=== PATIENT | female | born 1950 | race African-American/Black ===

== ENCOUNTER 2017-02-13 11:45 | Emergency (ER) | payer MEDICARE, OTHER ==
[2017-02-13 11:59] VITALS: TEMP 98.4; BMI 26.5
[2017-02-13] MEDS ORDERED: HEMOQUE TEST 1 EACH EACH ONE (12:01)
[2017-02-13 12:11] VITALS: BP 151/77; PULSE 88
--- NOTE | 2017-02-13 12:45 | PDOC ---
History of Present Illness - General History Source: Patient (Patient brought in by ambulance because of intermitent headaches progressively worse on the right side of head , coinciding with recent retina damage by her eye specialists who were recomending injections in the left eye globe and eye drops or the right one), EMS <Gerald Lynn - Last Filed: 02/13/17 13:58> <Maria Guadalupe Rodriguez - Last Filed: 02/14/17 18:40> - General Chief Complaint: Headache Stated Complaint: PAIN IN HEAD Time Seen by Provider: 02/13/17 11:48 Past History - Past Medical History COPD: No Diabetes: Yes HTN: Yes Hypercholesterolemia: Yes Thyroid Disease: Yes - Suicide/Smoking/Psychosocial Hx Smoking Status: No Smoking History: Never smoked Number of Cigarettes Smoked Daily: 0 Hx Alcohol Use: No Drug/Substance Use Hx: No Substance Use Type: None <Gerald Lynn - Last Filed: 02/13/17 13:58> <Maria Guadalupe Rodriguez - Last Filed: 02/14/17 18:40> - Past Medical History Allergies/Adverse Reactions: Allergies Allergy/AdvReac Type Severity Reaction Status Date / Time ANTIHISTAMINES Allergy Uncoded 02/13/17 12:00 Home Medications: Ambulatory Orders Aspirin [ASA] 81 mg PO DAILY 01/21/12 Glipizide [Glipizide ER] 10 mg PO DAILY 01/21/12 Levothyroxine [Synthroid] 75 mcg PO DAILY 01/21/12 Lisinopril [Prinivil] 40 mg PO DAILY 01/21/12 Lovastatin 40 mg PO DAILY 01/21/12 Metformin HCl [Glucophage] 800 mg PO BID 01/21/12 Naproxen [Naprosyn -] 375 mg PO Q12H #14 tablet 02/13/17 Naproxen [Naprosyn -] 375 mg PO Q12H #14 tablet 02/13/17 Neuro Specific PMHX - Complaint Specific PMHX Glaucoma: No <Gerald Lynn - Last Filed: 02/13/17 13:58> *Physical Exam - Vital Signs Last Vital Signs Temp Pulse Resp BP Pulse Ox 98.4 F 88 18 151/77 100 02/13/17 11:46 02/13/17 12:09 02/13/17 12:09 02/13/17 12:09 02/13/17 12:09 <Gerald Lynn S - Last Filed: 02/13/17 13:58> - Vital Signs Last Vital Signs Temp Pulse Resp BP Pulse Ox 98.4 F 88 18 151/77 100 02/13/17 11:46 02/13/17 12:09 02/13/17 12:09 02/13/17 12:09 02/13/17 12:09 - Physical Exam Comments: 02/14/17 18:34 GENERAL: Well developed, well nourished. Awake and alert. In no acute distress. HEENT: Normocephalic, atraumatic with no signs of injury. + Mild tenderness to palpation of the right parietal area. PERRLA, EOMI. No conjunctival pallor. Sclera are non-icteric. Moist mucous membranes. Oropharynx is clear. NECK: Supple. Full ROM. No JVD. Carotid pulses 2+ and symmetric, without bruits. No thyromegaly. No lymphadenopathy. CARDIOVASCULAR: Regular rate and rhythm. No murmurs, rubs, or gallops. Distal pulses are 2+ and symmetric. PULMONARY: No evidence of respiratory distress. Lungs clear to auscultation bilaterally. No wheezing, rales or rhonchi. MUSCULOSKELETAL Normal range of motion at all joints. No bony deformities or tenderness. No CVA tenderness. EXTREMITIES: No cyanosis. No clubbing. No edema. No calf tenderness. SKIN: Warm and dry. Normal capillary refill. No rashes. No jaundice. NEUROLOGICAL: Alert, awake, appropriate. Cranial nerves 2-12 intact. No deficits to light touch and temperature in face, upper extremities and lower extremities. No motor deficits in the in face, upper extremities and lower extremities. Normoreflexic in the upper and lower extremities. Normal speech. Toes are downgoing bilaterally. Gait is normal without ataxia. PSYCHIATRIC: Cooperative. Good eye contact. Appropriate mood and affect. <Maria Guadalupe Rodriguez - Last Filed: 02/14/17 18:40> ED Treatment Course - LABORATORY CBC & Chemistry Diagram: 02/13/17 12:42 02/13/17 12:42 - ADDITIONAL ORDERS Additional order review: Laboratory Results 02/13/17 12:02 POC Glucometer [id number] 02/13/17 12:02 POC Glucometer [id number] <Gerald Lynn - Last Filed: 02/13/17 13:58> - LABORATORY CBC & Chemistry Diagram: 02/13/17 12:42 02/13/17 12:42 - ADDITIONAL ORDERS Additional order review: 02/13/17 02/13/17 12:42 12:02 RBC 4.67 MCV 85.3 MCHC 32.7 RDW 13.2 MPV 12.0 H D Neutrophils % 67.9 D Lymphocytes % 22.2 D Monocytes % 6.4 Eosinophils % 1.4 Basophils % 2.1 H POC Glucometer [id number] - Medications Given in the ED: ED Medications Discontinued Medications Generic Name Dose Route Start Last Admin Trade Name Freq PRN Reason Stop Dose Admin Ketorolac Tromethamine 30 mg 02/13/17 13:18 02/13/17 13:21 Toradol Injection - IM 02/13/17 13:19 30 mg ONCE ONE Administration <Maria Guadalupe Rodriguez - Last Filed: 02/14/17 18:40> Medical Decision Making - Medical Decision Making 02/13/17 13:59 Patient feels much improved after receiving Ketorolac im. Discussed with patient about close follow up with her Ophtalmologists <Gerald Lynn - Last Filed: 02/13/17 13:58> *DC/Admit/Observation/Transfer - Discharge Dispostion Admit: No <Gerald Lynn - Last Filed: 02/13/17 13:58> <Maria Guadalupe Rodriguez - Last Filed: 02/14/17 18:40> Diagnosis at time of Disposition: Trigeminal neuralgia of right side of face Diabetes mellitus Qualifiers: Diabetes mellitus type: type 2 Diabetes mellitus complication status: with ophthalmic complications Diabetes mellitus complication detail: with diabetic retinopathy Proliferative retinopathy type: stable Diabetes mellitus termite renewal inspector insulin use: without termite renewal inspector use Laterality: left - Discharge Dispostion Disposition: HOME Condition at time of disposition: Improved - Prescriptions Prescriptions: Naproxen [Naprosyn -] 375 mg PO Q12H #14 tablet Naproxen [Naprosyn -] 375 mg PO Q12H #14 tablet - Patient Instructions Printed Discharge Instructions: DI for Trigeminal Neuralgia Additional Instructions: Follow up with your eye doctors
[2017-02-13 12:53] LABS: BASOPHIL 2.1 % (0-2.0); EOSINOPHIL 1.4 % (0-4.5); MCH 27.9 pg (25.7-33.7); MCHC 32.7 g/dl (32.0-36.0); MEAN CELL VOLUME 85.3 fl (80-96); NEUTROPHILS 67.9 % (42.8-82.8); PLATELET COUNT 156 K/MM3 (134-434); RDW 13.2 % (11.6-15.6); WHITE BLOOD COUNT 4.7 K/mm3 (4.0-10.8)
[2017-02-13] MEDS ORDERED: KETOROLAC TROMETHAMINE 30 MG/1 ML VIAL IM ONE (13:18)
[2017-02-13] MEDS ORDERED: KETOROLAC TROMETHAMINE 30 MG/1 ML VIAL ONE (13:18)
[2017-02-13 15:49] LABS: ANION GAP 12 (8-16); BILIRUBIN,TOTAL 0.6 mg/dL (0.2-1.0); CALCIUM 9.8 mg/dL (8.5-10.1); CO2 24 mmol/L (21-32); GLUCOSE,RANDOM 177 mg/dL (74-106); SGOT/AST 25 U/L (15-37); SGPT/ALT 23 U/L (12-78)
[2017-02-13 15:50] LABS: ALK PHOS 79 U/L (45-117)
--- NOTE | 2017-02-18 15:10 | EKG ---
Test Reason : Blood Pressure : / mmHG Vent. Rate : 097 BPM Atrial Rate : 097 BPM P-R Int : 172 ms QRS Dur : 098 ms QT Int : 342 ms P-R-T Axes : 047 -28 023 degrees QTc Int : 434 ms NORMAL SINUS RHYTHM NORMAL ECG NO PREVIOUS ECGS AVAILABLE Confirmed by CLARE KUMAR MD ([id number]) on 02/18/2017 3:10:10 PM Referred By: CARLOS HUNTER Confirmed By:CLARE KUMAR MD
== END 2017-02-13 14:17 | disposition home or self-care (01) ==
LOC: FER 11:45
PROC: 3E0233Z Introduction of Anti-inflammatory into Muscle, Percutaneous Approach (ICD-10-PCS; principal; 2017-02-13)
DX: G50.0 Trigeminal neuralgia (principal); E11.319 Type 2 diabetes mellitus with unspecified diabetic retinopathy without macular edema
CPT/HCPCS: 36415; 70450-TC; 80053; 84484; 85025; 93005; 93010; 99282-25